=== PATIENT | female | born 1925 | race Caucasian/White ===

== ENCOUNTER 2016-05-11 10:40 | Emergency (ER) | payer OTHER, BC ==
[2016-05-11 10:46] VITALS: BP 135/68; PULSE 96; TEMP 97.4; BMI 24.5
--- NOTE | 2016-05-11 12:30 | PDOC ---
[id number] No Limitations - History of Present Illness Initial Comments: CHIEF COMPLAINT: 89 y/o female c/o external vaginal itching and redness for 2 weeks. HISTORY OF PRESENT ILLNESS: The patient denies abnormal vaginal discharge. She denies all other symptoms. She has been using OTC cream (she thinks monostat) but that didn't help. Vital signs on arrival are notable for pulse of 96. REVIEW OF SYSTEMS: GENERAL/CONSTITUTIONAL: No fever/chills. No weakness. No weight change. HEAD, EYES, EARS, NOSE AND THROAT: No change in vision. No ear pain or discharge. No sore throat. CARDIOVASCULAR: No chest pain or shortness of breath. RESPIRATORY: No cough, wheezing, or hemoptysis. GASTROINTESTINAL: No abd pain, nausea, vomiting, diarrhea. GENITOURINARY: No dysuria, frequency, or change in urination. +vaginal itching and irritation. MUSCULOSKELETAL: No joint or muscle swelling or pain. No neck or back pain. SKIN: No rash or easy bruising. PHYSICAL EXAM: GENERAL: The patient is awake, alert, and fully oriented, in no acute distress. HEAD: Normal with no signs of trauma. ABDOMEN: Soft, non-distended, non-tender even to deep palpation, no hepatomegaly or splenomegaly, no masses. VAGINAL: erythematous and dry external labia majora b/l. No abnormal vaginal discharge. EXTREMITIES: Normal range of motion, no edema. NEUROLOGICAL: Normal speech, normal gait. CN II-XII grossly intact. PSYCH: Normal mood, normal affect. SKIN: Warm, dry, normal turgor, no rashes or lesions noted. <Marlen Delgadillo - Last Filed: 05/11/16 12:34> <Cj Singer - Last Filed: 05/14/16 20:19> - General Chief Complaint: Pain Stated Complaint: VAGINAL PAIN Time Seen by Provider: 05/11/16 11:51 Past History - Past Medical History Thyroid Disease: Yes - Surgical History Abdominal Surgery: Yes - Psycho/Social/Smoking Cessation Hx Suicidal Ideation: No Smoking History: Never smoked Information on smoking cessation initiated: No <Marlen Delgadillo - Last Filed: 05/11/16 12:34> <Cj Singer - Last Filed: 05/14/16 20:19> - Past Medical History Allergies/Adverse Reactions: Allergies Allergy/AdvReac Type Severity Reaction Status Date / Time Penicillins Allergy Verified 05/11/16 10:46 Home Medications: Ambulatory Orders Hydrocortisone 1% Cream [Hytone 1% Cream -] 1 applic TP QID #1 tube 05/11/16 *Physical Exam - Vital Signs Last Vital Signs Temp Pulse Resp BP Pulse Ox 97.4 F L 96 H 18 135/68 97 05/11/16 10:42 05/11/16 10:42 05/11/16 10:42 05/11/16 10:42 05/11/16 10:42 <Marlen Delgadillo - Last Filed: 05/11/16 12:34> - Vital Signs Last Vital Signs Temp Pulse Resp BP Pulse Ox 97.4 F L 96 H 18 135/68 97 05/11/16 10:42 05/11/16 10:42 05/11/16 10:42 05/11/16 10:42 05/11/16 10:42 <Cj Singer - Last Filed: 05/14/16 20:19> Medical Decision Making - Medical Decision Making A/P: 89 y/o afebrile female with most likely atrophic vaginitis. Plan is to d/ c to home with rx for hydrocortisone cream. Pt instructed to use as prescribed and f/u with her PCP if no improvement in symptoms. The patient verbalizes understanding of all instructions, has no further questions and is awaiting discharge. <Marlen Delgadillo - Last Filed: 05/11/16 12:34> - Medical Decision Making 05/14/16 20:19 The patient was seen and evaluated in conjunction with VINNIE Delgadillo under my direct supervision, ancillary studies were reviewed. I independently interviewed and evaluated the patient and I agree with the plan as outlined by VINNIE Delgadillo . <Cj Singer - Last Filed: 05/14/16 20:19> *DC/Admit/Observation/Transfer <Marlen Delgadillo - Last Filed: 05/11/16 12:34> <Cj Singer - Last Filed: 05/14/16 20:19> Diagnosis at time of Disposition: Vaginitis and vulvovaginitis - Discharge Dispostion Disposition: HOME Condition at time of disposition: Good - Prescriptions Prescriptions: Hydrocortisone 1% Cream [Hytone 1% Cream -] 1 applic TP QID #1 tube - Referrals Referrals: Acosta Carias MD [Primary Care Provider] - - Patient Instructions Printed Discharge Instructions: Atrophic Vaginitis Additional Instructions: Discharge Instructions: -Use cream as prescribed -Follow up with Dr. Carias if no improvement in symptoms
== END 2016-05-11 12:47 | disposition home or self-care (01) ==
LOC: JER 10:40
DX: N76.0 Acute vaginitis (principal); N95.2 Postmenopausal atrophic vaginitis
CPT/HCPCS: 99281-25